=== PATIENT | female | born 1940 | race Caucasian/White ===

== ENCOUNTER 2017-01-24 11:23 | Emergency (ER) | payer MEDICARE, BC ==
[~2017-01-24] VITALS: Ht 160 cm; Wt 89.2 kg
[~2017-01-24 11:23] MED LIST: CRES20TA PO; LORA-392 PO; METO25CR PO; [UNRECOGNIZED DRUG - CODE] OP
[2017-01-24 11:32] VITALS: PULSE 75; RESP 18; TEMP 97.8; O2SAT 97
[2017-01-24 11:43] VITALS: BP 194/97
[2017-01-24] MEDS ORDERED: TAFL0.00 EACH EYE (11:46)
[2017-01-24] MEDS ORDERED: LEVO.05 PO (11:46)
[2017-01-24] MEDS ORDERED: ASPI81CH CHEW (11:46)
[2017-01-24] MEDS ORDERED: METO25TA3 PO (11:46)
[2017-01-24] MEDS ORDERED: LORA-373 PO (11:46)
[2017-01-24] MEDS ORDERED: TIMO0.5S30 EACH EYE (11:46)
[2017-01-24] MEDS ORDERED: BRIM0.155 EACH EYE (11:46)
[2017-01-24] MEDS ORDERED: DOXY100C PO (12:29)
[2017-01-24] MEDS ORDERED: PRED20 PO (12:29)
[2017-01-24] MEDS ORDERED: predniSONE 20 MG TAB PO ONE (12:30)
[2017-01-24] MEDS ORDERED: DOXYCYCLINE HYCLATE 100 MG CAP PO ONE (12:30)
--- NOTE | 2017-01-24 12:33 | PD ---
HPI Chief Complaint: Cold / Flu Symptoms Time Seen by Provider: 12:30 Travel History International Travel<30 days: No Contact w/Intl Traveler<30days: No Traveled to known affect area: No History of Present Illness HPI 76-year-old female that presents to the ED for evaluation of congestion the past 2 weeks. Per patient she was given a prescription for azithromycin and she 's been using fluconazole and some anti-histamines [id number] with minimal relief. Per patient she felt like she was getting better but then started getting worse the past couple days. Per patient she's had a lot of postnasal drip that gives her choking episodes. Per patient she's had 2 yesterday and 2 today. She states that she really has an apartment with her neurosurgeon, tomorrow. Per patient she came here today because of the choking episodes and the sensation that she's not getting better. She states compliance with the medications given to her. She has no history of diabetes. No history of asthma. She does have a history of Parkinson's disease, hypothyroidism. States having some cough and congestion. Headache as well. Allergy to Cipro, Elavil, penicillin. PFSH Past Medical History Anxiety: Yes Depression: Yes Cardiovascular Problems: Yes High Cholesterol: Yes Diminished Hearing: No GERD: Yes Glaucoma: Yes Hypertension: Yes Parkinson's Disease: Yes Seizures: Yes Thyroid Disease: Yes ?: Not Past Surgical History Appendectomy: Yes Genitourinary Surgery: Yes (repair pelvic prolapse) Hysterectomy: Yes Joint Replacement: Yes (L knee) Tonsillectomy: Yes Social History Alcohol Use: No Tobacco Use: No Substance Use: No Allergies-Medications (Allergen,Severity, Reaction): Coded Allergies: Cipro (Verified Allergy, Severe, HIVES, 10/25/12) Elavil (Verified Allergy, Unknown, 01/24/17) Penicillin (Verified Allergy, Unknown, 01/24/17) Reported Meds & Prescriptions Reported Meds & Active Scripts Active Prednisone 20 Mg Tab 20 Mg PO BID Doxycycline Hyclate 100 Mg Cap 100 Mg PO BID 10 Days Reported Zioptan Opth Drops (Tafluprost Opth Drops) 0.015 Mg/Ml Drops 1 Drop EACH EYE HS Brimonidine Opth Drops (Brimonidine Tartrate) 0.15% Soln 1 Drop EACH EYE TID Timolol Opth Drops 0.5 % Soln 1 Drop EACH EYE BID Aspirin 81 Mg Chew 81 Mg CHEW DAILY Lorazepam 0.5 Mg Tab 0.5 Mg PO DAILY PRN Synthroid (Levothyroxine Sodium) 50 Mcg Tab 50 Mcg PO DAILY Metoprolol Tartrate 25 Mg Tab 25 Mg PO BID Review of Systems Except as stated in HPI: all other systems reviewed are Neg Physical Exam Narrative GENERAL: Well-nourished, well-developed patient in no apparent distress. SKIN: Warm and dry. HEAD: Atraumatic. Normocephalic. EYES: Pupils equal and round reactive to light and accommodation. No scleral icterus. No injection or drainage. ENT: No nasal bleeding or discharge. Mucous membranes pink and moist. TMs are clear with no sign of infection or perforation. No mastoid tenderness. Ear canals are intact bilaterally. No lymphadenopathy. Nostril mucosa is red and moist with clear mucus noted. No sinus tenderness to palpation noted. Tonsils are not enlarged or swollen. No ulvua Deviation. Tongue is midline. NECK: Trachea midline. No JVD. No meningeal signs noted CARDIOVASCULAR: Regular rate and rhythm. RESPIRATORY: No accessory muscle use. Clear to auscultation. Breath sounds equal bilaterally. GASTROINTESTINAL: Abdomen soft, non-tender, nondistended. Hepatic and splenic margins not palpable. MUSCULOSKELETAL: Extremities without clubbing, cyanosis, or edema. No obvious deformities. NEUROLOGICAL: Awake and alert. No obvious cranial nerve deficits. Motor grossly within normal limits. Five out of 5 muscle strength in the arms and legs. Normal speech. PSYCHIATRIC: Appropriate mood and affect; insight and judgment normal. Data Data Last Documented VS Vital Signs Date Time Temp Pulse Resp B/P Pulse Ox O2 Delivery O2 Flow Rate FiO2 01/24/17 11:43 194/97 01/24/17 11:32 97.8 75 18 97 Orders Doxycycline (Vibramycin) (01/24/17 12:30) Prednisone (Deltasone) (01/24/17 12:30) [facility] Medical Decision Making Medical Screen Exam Complete: Yes Emergency Medical Condition: Yes Medical Record Reviewed: Yes Differential Diagnosis Sinusitis versus sore throat versus pharyngitis versus strep throat versus URI Narrative Course 76-year-old female that presents to the ED for evaluation of nasal congestion. Patient was properly examined and was found to have signs and symptoms very consistent what appears to be sinus infection. Patient will be treated for this with doxycycline and prednisone. Patient was given the first dose of this here today. I recommend that she continues her appointment with her ear nose and throat tomorrow for further evaluation of this does not get better. Patient 's vitals and physical exam are reassuring at this time. Patient was told to take OTC medicines as needed. See ED worsening symptoms. Diagnosis Primary Impression: Sinusitis, acute Qualified Code: J01.90 - Acute non-recurrent sinusitis, unspecified location Patient Instructions: General Instructions Additional Instructions: Motrin and Tylenol for pain and fever. You can use [id number] antihistamine as well as well as Mucinex as needed for runny nose and congestion. Cough drops for cough as needed. Drink plenty of fluids. Follow-up with PCP. See ED for worsening symptoms. Med/Other Pt SpecificInfo: Prescription(s) given Scripts Prednisone 20 Mg Tab20 Mg PO BID #10 TAB Prov:Chao Leonardo MD 01/24/17 Doxycycline Hyclate 100 Mg Tps390 Mg PO BID 10 Days Ref 0 Prov:Chao Leonardo MD 01/24/17 Disposition: 01 DISCHARGE HOME Condition: Stable Franklyn Mclain Jan 24, 2017 12:33
== END 2017-01-24 13:02 | disposition home or self-care (01) ==
LOC: PHEFT 11:23
DX: J01.90 Acute sinusitis, unspecified (principal); R05 Cough; I10 Essential (primary) hypertension; E03.9 Hypothyroidism, unspecified; G20 Parkinson's disease; E78.00 Pure hypercholesterolemia, unspecified; Z86.59 Personal history of other mental and behavioral disorders; Z86.79 Personal history of other diseases of the circulatory system; Z87.19 Personal history of other diseases of the digestive system; Z86.69 Personal history of other diseases of the nervous system and sense organs
CPT/HCPCS: 99284; J7512